=== PATIENT | male | born 1965 | race Caucasian/White ===

== ENCOUNTER 2024-07-12 14:53 | Emergency (ER) | payer SELFPAY ==
[2024-07-12 14:56] VITALS: BP 168/86
--- NOTE | 2024-07-12 15:10 | ED.GENMED ---
History of Present Illness
<Sudha Gan PA-C - Last Filed: 07/12/24 20:49>
General
Chief Complaint: Abdominal Pain
Source: patient
Exam Limitations: none
Time Seen by Provider: 07/12/24 15:10
Nursing documentation reviewed up to this point in time: agreed with
History of Present Illness
History of Present Illness:
58-year-old male with no past medical history presents to the emergency department today with concerns for left-sided abdominal pain. Patient reports that he notices pain upon awakening. Patient states that he rates the pain 7 out of 10 in
severity. Patient denies radiation of the pain. Patient states he feels it in his left upper and lower abdomen. It is not worse with food. Patient is unable to identify any provoking or palliative factors. Patient has not tried taking anything
for the pain. Patient denies any nausea or vomiting. Patient denies any fevers or chills. Has no history of intra-abdominal surgeries. Denies recent travel to the country. Patient denies any diarrhea or constipation. Patient does note
generalized decreased appetite the past few days.
Review of Systems
<Sudha Gan PA-C - Last Filed: 07/12/24 20:49>
Review of Systems
All Other Systems: ROS reviewed and negative except as documented in HPI and ROS
Phy Exam
<Sudha Gan PA-C - Last Filed: 07/12/24 20:49>
Physical Exam
Physical Exam:
General: Patient is well appearing and in no acute distress; non-toxic
Skin: Warm and dry, no rashes or lesions
Head: Normocephalic, atraumatic
Eyes: Sclera non-icteric. EOMs intact.
Cardiac: Regular rate and rhythm, no murmur
Pulm: Normal respiratory effort, no wheezes, rales,
Abdomen: Nonspecific left-sided abdominal tenderness to palpation no guarding, no palpable masses.
Neuro: CN II-XII intact, no focal neurologic deficits.
Psychiatric: Appropriate mood and affect.
Course
<Sudha Gan PA-C - Last Filed: 07/12/24 20:49>
Orders/Labs/Results
Orders:
Orders
07/12/24 15:59
Complete Blood Count/With Diff Urgent
Comprehensive Metabolic Panel Urgent
Lipase Urgent
07/12/24 16:07
CT Abd/pelvis W Iv Cont Urgent
Comment:
Reason For Exam: left lower abdomen pain
07/12/24 16:19
Ketorolac [Toradol] 15 mg IV NOW STA
07/12/24 17:39
Acetaminophen [Tylenol] 1,000 mg PO NOW STA
Abnormal Lab Results
07/12/24
15:59
MCH 31.3 H pg
(27.0-31.0)
Abs Immat Gran (auto) 0.1 H 10^3/uL
(0-0.05)
Absolute Neuts (auto) 8.3 H 10^3/uL
(1.4-6.5)
Absolute Lymphs (auto) 0.8 L 10^3/uL
(1.2-3.4)
Immature Gran % 0.6 H %
(0-0.5)
Neutrophils % 84.5 H %
(42.2-75.2)
Lymphocytes % 8.0 L %
(20.5-51.1)
Glucose 102 H mg/dl
(70-99)
Albumin 5.1 H g/dl
(3.5-5.0)
07/12/24 15:59
07/12/24 15:59
Vital Signs
Initial and Last Documented VS:
Initial Vital Signs
Temp Pulse Resp BP Pulse Ox
97.3 F 67 16 168/86 98
07/12/24 14:56 07/12/24 14:56 07/12/24 14:56 07/12/24 14:56 07/12/24 14:56
Last Documented Vital Signs
Temp Pulse Resp BP Pulse Ox
97.3 F 64 16 157/89 100
07/12/24 14:56 07/12/24 17:36 07/12/24 17:36 07/12/24 17:36 07/12/24 17:36
<Reji Mckay MD - Last Filed: 07/12/24 18:56>
Orders/Labs/Results
Orders:
Orders
07/12/24 15:59
Complete Blood Count/With Diff Urgent
Comprehensive Metabolic Panel Urgent
Lipase Urgent
07/12/24 16:07
CT Abd/pelvis W Iv Cont Urgent
Comment:
Reason For Exam: left lower abdomen pain
07/12/24 16:19
Ketorolac [Toradol] 15 mg IV NOW STA
07/12/24 17:39
Acetaminophen [Tylenol] 1,000 mg PO NOW STA
Abnormal Lab Results
07/12/24
15:59
MCH 31.3 H pg
(27.0-31.0)
Abs Immat Gran (auto) 0.1 H 10^3/uL
(0-0.05)
Absolute Neuts (auto) 8.3 H 10^3/uL
(1.4-6.5)
Absolute Lymphs (auto) 0.8 L 10^3/uL
(1.2-3.4)
Immature Gran % 0.6 H %
(0-0.5)
Neutrophils % 84.5 H %
(42.2-75.2)
Lymphocytes % 8.0 L %
(20.5-51.1)
Glucose 102 H mg/dl
(70-99)
Albumin 5.1 H g/dl
(3.5-5.0)
07/12/24 15:59
07/12/24 15:59
Vital Signs
Initial and Last Documented VS:
Initial Vital Signs
Temp Pulse Resp BP Pulse Ox
97.3 F 67 16 168/86 98
07/12/24 14:56 07/12/24 14:56 07/12/24 14:56 07/12/24 14:56 07/12/24 14:56
Last Documented Vital Signs
Temp Pulse Resp BP Pulse Ox
97.3 F 64 16 157/89 100
07/12/24 14:56 07/12/24 17:36 07/12/24 17:36 07/12/24 17:36 07/12/24 17:36
<Sudha Gan PA-C - Last Filed: 07/12/24 20:49>
MDM/Problems Addressed
Differential Diagnosis Includes:
Differentials include diverticulitis, gastritis, gastroenteritis, pancreatitis
MDM/Problems Addressed:
58-year-old male with no past medical history presents emergency department today with concerns of left-sided abdominal pain. He rates the pain 7 out of 10. Patient was evaluated for some urgent care was sent here. Patient has associated
decreased appetite but otherwise no other symptoms. Here in the ER, he is well-appearing on exam, he is afebrile, his vitals are stable. He does have tenderness palpation in the left side of the abdomen within the upper and lower quadrants. Seems
to be worse around the midline. He has no guarding. On reassessment 10 minutes later after physical exam, patient feels as though the physical exam made his pain worse. Will obtain lab work, CAT scan, and will treat pain with Toradol.
<Sudha Gan PA-C - Last Filed: 07/12/24 20:49>
*Pulse Oximetry
Patient hypoxic: no
*Critical Care Note
Total Time (30-74mins, 75-104mins- exclusive of procedures): Not Applicable
Data Reviewed
Review of Other/Old Records Reveals: Records (Reviewed ER physician documentation from 11/02/2023 patient was seen for dizziness admitted, later attributed to dehydration)
Source: patient and records
ED Attending Note
<Sudha Gan PA-C - Last Filed: 07/12/24 20:49>
-
Portions of this chart may have been created with voice recognition software.� Occasional wrong word or��sound alike� substitutions may have occurred due to the inherent limitations of voice recognition software.
<Reji Mckay MD - Last Filed: 07/12/24 18:56>
ED Attending Note
ED Attending Note:
isolated mild LUQ pain and ttp
labs and imaging reassuring
hx of GERD and esophagitis -- states used to take omeprazole but stopped taking it
will represcribe omeprazole instruct him to fu with his Chair Maker
Discharge Plan
Departure
Patient Disposition: Home (Routine Discharge)
Date of Disposition: 07/12/24
Time of Disposition: 18:56
Patient with high blood pressure during this ER visit?: Yes
Discharge Problem:
Abdominal pain
Instructions: Gastritis
Prescriptions:
New
omeprazole 40 mg capsule,delayed release(DR/EC)
40 mg PO DAILY Qty: 14 0RF
No Action
omeprazole 40 mg capsule,delayed release(DR/EC)
40 mg PO DAILY
aspirin [Ecotrin Low Strength] 81 mg tablet,delayed release (DR/EC)
81 mg PO DAILY Qty: 30 2RF
Referrals:
Lachelle Tay MD [Family Provider] -
Activity Restrictions/Additional Instructions:
please follow up closely with your trailer technician
Interventions
Interventions:
*Risk Screen - Suicide Last Done: 07/12/24 15:18
*General Assessment Last Done: 07/12/24 15:18
*Neglect/Abuse Screening Last Done: 07/12/24 15:18
*ED COVID-19 Vaccine History Last Done: 07/12/24 15:18
*Nursing Disposition Last Done: 07/12/24 19:24
[facility] Assessment Last Done: 07/12/24 15:18
Discharge Date and Time
Discharge Date/Time: 07/12/24 19:24
Print Language: MARTINIQUAIS
[2024-07-12 15:22] VITALS: BMI 23.7
[2024-07-12 16:20] LABS: % Basophils 0.5 % (0-2); % Eosinophils 0.6 % (0-6); % Immature Granulocytes 0.6 % (0-0.5); % Monocytes 5.8 % (1.7-9.3); % Neutrophils 84.5 % (42.2-75.2); Absolute Basophils 0.1 10^3/uL (0-0.2); Absolute Eosinophils 0.1 10^3/uL (0-0.7); Absolute Immature Granulocytes 0.1 10^3/uL (0-0.05); Absolute Lymphocytes 0.8 10^3/uL (1.2-3.4); Absolute Monocytes 0.6 10^3/uL (0.1-0.6); Absolute Neutrophils 8.3 10^3/uL (1.4-6.5); Hematocrit 44.6 % (39.0-52.0); Hemoglobin 16.2 g/dL (13.0-18.0); Mean Corp Hgb Conc. 36.3 g/dL (33.0-37.0); Mean Corpuscular Hgb 31.3 pg (27.0-31.0); Mean Corpuscular Volume 86.1 fL (80.0-94.0); Mean Platelet Volume 9.6 fL (7.4-10.4); Nucleated Red Blood Cells % 0 % (-); Platelet Count 244 10^3/uL (130-400); Red Blood Cell Count 5.18 10^6/uL (4.70-6.10); Red Cell Dist. Width 12.3 % (11.5-14.5); White Blood Cell Count 9.8 10^3/uL (4.8-10.8)
[2024-07-12] MEDS: TORADOL 15 MG IV (16:29)
[2024-07-12 16:34] LABS: ALT (SGPT) 26 U/L (0-50); AST (SGOT) 26 U/L (17-59); Albumin 5.1 g/dl (3.5-5.0); Alkaline Phosphatase 41 U/L (38-126); Blood Urea Nitrogen 12 mg/dl (9-20); Calcium 9.9 mg/dl (8.4-10.2); Carbon Dioxide 26 mmol/L (22-30); Chloride 101 mmol/L (98-107); Estimated Creatinine Clearance 101 ml/min; Glucose 102 mg/dl (70-99); Lipase 36 U/L (23-300); Potassium 4.6 mmol/L (3.5-5.1); Sodium 139 mmol/L (135-145); Total Bilirubin 1.1 mg/dl (0.2-1.3); Total Protein 7.5 g/dl (6.3-8.2); eGFR > 60.00
[2024-07-12 17:36] VITALS: BP 157/89
[2024-07-12] MEDS: TYLENOL 1000 MG PO (17:53)
== END 2024-07-12 19:24 | disposition home or self-care (01) ==
LOC: EMR 14:53
PROVIDERS: Physician Assistant; EMERGENCY PHYSICIAN Emergency Medicine; FAMILY PHYSICIAN Student in an Organized Health Care Education/Training Program
DX: R10.9 Unspecified abdominal pain (principal)
CPT/HCPCS: 99284; 96374; 74177; 80053; 83690; 85025; Q9967